=== PATIENT | male | born 1955 | race Caucasian/White ===

== ENCOUNTER 2021-05-31 16:00 | Emergency (ER) | payer MEDICARE ==
[~2021-05-31] VITALS: Ht 182.9 cm; Wt 105.7 kg
[2021-05-31] MEDS ORDERED: OZEMPIC0.25 MG/0. SC (16:31)
[2021-05-31] MEDS ORDERED: METFORMIN HCL500 MG PO (16:31)
[2021-05-31] MEDS ORDERED: CARVEDILOL12.5 MG PO (16:31)
[2021-05-31] MEDS ORDERED: LOSARTAN POTASS25 MG PO (16:31)
[2021-05-31] MEDS ORDERED: QUETIAPINE FUMA25 MG PO (16:31)
[2021-05-31] MEDS ORDERED: FENOFIBRATE160 MG (16:31)
[2021-05-31] MEDS ORDERED: PLAVIX75 MG PO (16:31)
[2021-05-31] MEDS ORDERED: HYDROXYZINE HCL50 MG (16:31)
[2021-05-31] MEDS ORDERED: REPATHA SY140 MG/1 M (16:31)
[2021-05-31] MEDS ORDERED: ACETAMINOPHEN 325 MG TAB ONE (16:37)
[2021-05-31] MEDS ORDERED: SODIUM CHLORIDE 0.9% 1000ML 1,000 ML IV SCH (16:45)
[2021-05-31] MEDS ORDERED: SODIUM CHLORIDE 0.9% 1000ML 1,000 ML ONE (16:59)
[2021-05-31] MEDS ORDERED: ACETAMINOPHEN 325 MG TAB PO ONE (17:15)
[2021-05-31] MEDS ORDERED: CEFTRIAXONE 1 GM VIAL ONE (17:26)
[2021-05-31] MEDS ORDERED: CEFDINIR300 MG PO (17:28)
[2021-05-31] MEDS ORDERED: CEFTRIAXONE 1 GM in SODIUM CHLORIDE 0.9% 50ML 50 ML IV SCH (18:00)
== END 2021-05-31 17:45 | disposition home or self-care (01) ==
LOC: FSED 16:18
DX: R05.9 Cough, unspecified (principal); J20.9 Acute bronchitis, unspecified; B34.9 Viral infection, unspecified; E11.65 Type 2 diabetes mellitus with hyperglycemia; E78.5 Hyperlipidemia, unspecified; I10 Essential (primary) hypertension; I25.10 Atherosclerotic heart disease of native coronary artery without angina pectoris; R94.31 Abnormal electrocardiogram [ECG] [EKG]; Z20.822 Contact with and (suspected) exposure to COVID-19; Z95.1 Presence of aortocoronary bypass graft
CPT/HCPCS: 71046; 80053; 81003; 82553; 83880; 84484; 85025; 93005; 99284; J0696; J7030; U0002